=== PATIENT | female | born 1995 | race African-American/Black ===

== ENCOUNTER 2017-08-15 07:02 | Emergency (ER) | payer SELFPAY ==
[~2017-08-15] VITALS: Ht 160 cm; Wt 54.0 kg
[2017-08-15 07:09] VITALS: BP 120/77
== END 2017-08-15 08:19 | disposition left against medical advice (07) ==
LOC: ER 07:11
DX: R41.82 Altered mental status, unspecified (principal); Z53.21 Procedure and treatment not carried out due to patient leaving prior to being seen by health care provider